=== PATIENT | female | born 1955 | race Two or more races ===

== ENCOUNTER → 2017-11-24 | Outpatient (CLI) | payer OTHER ==
[~2017-11-24] MED LIST: FLEXERIL 10 MG PO; VOLTAREM 50 MG PO; ZYRTEC10 MG PO
== END | disposition home or self-care (01) ==
LOC: PPHC 10:56
DX: J06.9 Acute upper respiratory infection, unspecified (principal)

== ENCOUNTER 2018-04-14 16:33 | Outpatient (CLI) | payer OTHER | END 2018-04-14 16:43 | disposition home or self-care (01) | LOC: RAD 16:33 | DX: M79.621 Pain in right upper arm (principal) ==

== ENCOUNTER 2020-02-12 10:52 | Outpatient (CLI) | payer OTHER | END 2020-02-12 10:59 | disposition home or self-care (01) | LOC: LAB 10:52 | PROVIDERS: ATTEND Internal Medicine | DX: Z20.828 Contact with and (suspected) exposure to other viral communicable diseases (principal); Z20.818 Contact with and (suspected) exposure to other bacterial communicable diseases ==

== ENCOUNTER 2020-03-18 11:17 | Outpatient (CLI) | payer OTHER | END 2020-03-18 15:00 | disposition home or self-care (01) | LOC: LAB 11:17 | PROVIDERS: ATTEND Urology | DX: Z20.828 Contact with and (suspected) exposure to other viral communicable diseases (principal); R05 Cough; R06.02 Shortness of breath; Z03.818 Encounter for observation for suspected exposure to other biological agents ruled out ==

== ENCOUNTER 2020-03-25 14:40 | Outpatient (CLI) | payer OTHER | END 2020-03-25 14:47 | disposition home or self-care (01) | LOC: LAB 14:40 | PROVIDERS: ATTEND Internal Medicine Pulmonary Disease | DX: Z20.828 Contact with and (suspected) exposure to other viral communicable diseases (principal) ==

== ENCOUNTER 2020-04-08 15:41 | Outpatient (CLI) | payer OTHER | END 2020-04-08 15:46 | disposition home or self-care (01) | LOC: LAB 15:41 | DX: Z20.828 Contact with and (suspected) exposure to other viral communicable diseases (principal); J11.1 Influenza due to unidentified influenza virus with other respiratory manifestations; R05 Cough ==

== ENCOUNTER 2020-04-11 08:00 | Outpatient (CLI) | payer OTHER | END 2020-04-11 15:46 | disposition home or self-care (01) | LOC: PPH VACUNA 08:00 | DX: Z23 Encounter for immunization (principal) ==

== ENCOUNTER 2020-06-30 15:07 | Emergency (ER) | payer OTHER ==
[~2020-06-30] VITALS: Ht 172.7 cm; Wt 68.0 kg
== END 2020-06-30 16:50 | disposition home or self-care (01) ==
LOC: ER 15:07
DX: S61.222A Laceration with foreign body of right middle finger without damage to nail, initial encounter (principal); W26.0XXA Contact with knife, initial encounter; Y93.89 Activity, other specified; Y92.098 Other place in other non-institutional residence as the place of occurrence of the external cause; Y99.8 Other external cause status

== ENCOUNTER → 2020-07-05 | Emergency (ER) | payer OTHER ==
[~2020-07-05] MED LIST changes: +KETO10TA2 PO
== END | disposition left against medical advice (07) ==
LOC: ER 11:15
DX: Z53.21 Procedure and treatment not carried out due to patient leaving prior to being seen by health care provider (principal)

== ENCOUNTER 2020-07-08 11:30 | Emergency (ER) | payer OTHER ==
[~2020-07-08] VITALS: Ht 172.7 cm; Wt 70.3 kg
[~2020-07-08 11:30] MED LIST changes: -KETO10TA2 PO
== END 2020-07-08 13:24 | disposition home or self-care (01) ==
LOC: ER 11:30
DX: Z48.02 Encounter for removal of sutures (principal)

== ENCOUNTER 2020-07-15 06:11 | Emergency (ER) | payer OTHER ==
[~2020-07-15] VITALS: Ht 172.7 cm; Wt 70.3 kg
[2020-07-15] MEDS ORDERED: KETO10TA2 PO (07:30)
== END 2020-07-15 07:59 | disposition home or self-care (01) ==
LOC: ER 06:11
DX: R60.0 Localized edema (principal); S61.22 Laceration with foreign body of finger without damage to nail; X58.XXXS Exposure to other specified factors, sequela

== ENCOUNTER 2020-07-15 09:20 | Outpatient (CLI) | payer OTHER ==
[~2020-07-15 09:20] MED LIST changes: +KETO10TA2 PO
== END 2020-07-15 09:26 | disposition home or self-care (01) ==
LOC: LAB 09:20
PROVIDERS: ATTEND Internal Medicine
DX: Z20.828 Contact with and (suspected) exposure to other viral communicable diseases (principal)

== ENCOUNTER → 2020-09-05 10:11 | Outpatient (CLI) | payer OTHER | END | disposition home or self-care (01) | LOC: LAB 10:11 | PROVIDERS: ATTEND Family Medicine | DX: E03.8 Other specified hypothyroidism (principal); N39.0 Urinary tract infection, site not specified; Z12.11 Encounter for screening for malignant neoplasm of colon; E11.9 Type 2 diabetes mellitus without complications; B34.8 Other viral infections of unspecified site; E55.9 Vitamin D deficiency, unspecified; E78.49 Other hyperlipidemia; M06.8A Other specified rheumatoid arthritis, other specified site ==

== ENCOUNTER 2020-09-11 06:23 | Outpatient (CLI) | payer OTHER | END 2020-09-11 06:24 | disposition home or self-care (01) | LOC: LAB 06:23 | PROVIDERS: ATTEND Family Medicine | DX: M10.9 Gout, unspecified (principal); M06.4 Inflammatory polyarthropathy; M33.90 Dermatopolymyositis, unspecified, organ involvement unspecified ==

== ENCOUNTER 2020-10-15 10:27 | Outpatient (CLI) | payer OTHER | END 2020-10-15 10:31 | disposition home or self-care (01) | LOC: MAMO-SONO 10:27 | PROVIDERS: ATTEND Family Medicine | DX: N64.4 Mastodynia (principal); D10.9 Benign neoplasm of pharynx, unspecified ==

== ENCOUNTER 2020-10-15 11:35 | Outpatient (CLI) | payer OTHER | END 2020-10-15 11:44 | disposition home or self-care (01) | LOC: LAB 11:35 | PROVIDERS: ATTEND Family Medicine | DX: Z20.828 Contact with and (suspected) exposure to other viral communicable diseases (principal); N39.0 Urinary tract infection, site not specified ==

== ENCOUNTER → 2021-04-22 | Outpatient (CLI) | payer OTHER | END | disposition home or self-care (01) | LOC: PPH VACUNA 08:00 | PROVIDERS: ATTEND Emergency Medicine Pediatric Emergency Medicine | DX: Z23 Encounter for immunization (principal) ==

== ENCOUNTER 2021-04-29 08:00 | Outpatient (CLI) | payer OTHER | END 2021-04-29 08:30 | disposition home or self-care (01) | LOC: PPH VACUNA 08:00 | PROVIDERS: ATTEND Emergency Medicine Pediatric Emergency Medicine | DX: Z23 Encounter for immunization (principal) ==

== ENCOUNTER 2021-12-27 10:18 | Emergency (ER) | payer OTHER ==
[~2021-12-27] VITALS: Ht 172.7 cm; Wt 73.9 kg
== END 2021-12-27 14:23 | disposition home or self-care (01) ==
LOC: ER 10:18
DX: B34.9 Viral infection, unspecified (principal); J02.9 Acute pharyngitis, unspecified; Z20.822 Contact with and (suspected) exposure to COVID-19

== ENCOUNTER 2022-01-02 14:38 | Outpatient (CLI) | payer OTHER | END 2022-01-02 14:43 | disposition home or self-care (01) | LOC: LAB 14:38 | DX: Z20.822 Contact with and (suspected) exposure to COVID-19 (principal) ==

== ENCOUNTER 2022-03-25 08:00 | Outpatient (CLI) | payer OTHER | END 2022-03-25 08:05 | disposition home or self-care (01) | LOC: PPH VACUNA 08:00 | PROVIDERS: ATTEND Emergency Medicine Pediatric Emergency Medicine | DX: Z23 Encounter for immunization (principal) ==

== ENCOUNTER → 2022-05-14 | Outpatient (CLI) | payer OTHER | END | disposition home or self-care (01) | LOC: MAMO-SONO 14:01 | PROVIDERS: ATTEND Surgery | DX: Z12.31 Encounter for screening mammogram for malignant neoplasm of breast (principal) ==

== ENCOUNTER 2022-06-22 06:34 | Emergency (ER) | payer OTHER ==
[~2022-06-22] VITALS: Ht 172.7 cm; Wt 74.8 kg
== END 2022-06-22 11:55 | disposition home or self-care (01) ==
LOC: ER 06:34
DX: M25.552 Pain in left hip (principal); M54.50 Low back pain, unspecified; M43.8X6 Other specified deforming dorsopathies, lumbar region

== ENCOUNTER 2022-10-14 18:44 | Emergency (ER) | payer OTHER ==
[~2022-10-14] VITALS: Ht 172.7 cm; Wt 72.6 kg
== END 2022-10-14 21:25 | disposition home or self-care (01) ==
LOC: ER 18:44
DX: R10.2 Pelvic and perineal pain (principal)

== ENCOUNTER 2022-10-22 12:34 | Inpatient (IN) | payer OTHER ==
[~2022-10-22] VITALS: Ht 167.6 cm; Wt 70.8 kg
--- NOTE | 2022-10-22 12:42 | NUR ---
PACIENTE FEMENINA ALERTA Y ORIENTADA X3, REFIERE TENER DOLOR ABDOMINAL DEACON Y VOMITOS EL KARELY DE HOY MAS DE 5.
--- NOTE | 2022-10-22 13:05 | NUR ---
PTE ALERTA,ESTABLE Y ORIENTADA.SE EDUCA SOBRE EL TRATAMIENTO QUE RECIBIRA EN EL HOSPITAL Y ESTA REFIERE ENTENDER.SE LE JOCE MUESTRAS DE NATHAN JOY ORDEN MEDICA
[2022-10-27] MEDS ORDERED: PEPCID AC20 MG PO (13:01)
[2022-10-27] MEDS ORDERED: PROTONIX40 MG PO (13:01)
[2022-10-27] MEDS ORDERED: SLOW-MAG64 M1 PO (13:01)
[2022-10-27] MEDS ORDERED: KLOR-CON8 MEQ PO (13:01)
== END 2022-10-27 15:34 | disposition home or self-care (01) | DRG 641 ==
LOC: ER 12:34 → SURG 22:23 → SURH 10-26 11:36 → SURG 10-26 13:13
PROVIDERS: ADMIT Internal Medicine; ATTEND Internal Medicine
PROC: BW40ZZZ Ultrasonography of Abdomen (ICD-10-PCS; principal; 2022-10-22)
PROC: BW21YZZ Computerized Tomography (CT Scan) of Abdomen and Pelvis using Other Contrast (ICD-10-PCS; 2022-10-22)
PROC: CF141ZZ Planar Nuclear Medicine Imaging of Gallbladder using Technetium 99m (Tc-99m) (ICD-10-PCS; 2022-10-23)
PROC: 4A12X4Z Monitoring of Cardiac Electrical Activity, External Approach (ICD-10-PCS; 2022-10-25)
DX: E86.0 Dehydration (principal); N39.0 Urinary tract infection, site not specified; E87.6 Hypokalemia; K29.60 Other gastritis without bleeding; K21.9 Gastro-esophageal reflux disease without esophagitis; E83.42 Hypomagnesemia; I49.9 Cardiac arrhythmia, unspecified; F17.200 Nicotine dependence, unspecified, uncomplicated; Z20.822 Contact with and (suspected) exposure to COVID-19

== ENCOUNTER 2022-11-11 11:00 | Outpatient (CLI) | payer OTHER ==
[~2022-11-11 11:00] MED LIST changes: +KLOR-CON8 MEQ PO; +PEPCID AC20 MG PO; +PROTONIX40 MG PO; +SLOW-MAG64 M1 PO
== END 2022-11-11 11:08 | disposition home or self-care (01) ==
LOC: SONOGRAMA 11:00
DX: R10.2 Pelvic and perineal pain (principal)

== ENCOUNTER → 2023-03-25 | Outpatient (CLI) | payer OTHER | END | disposition home or self-care (01) | LOC: PPH VACUNA | PROVIDERS: ATTEND Emergency Medicine Pediatric Emergency Medicine | DX: Z23 Encounter for immunization (principal) ==

== ENCOUNTER 2023-05-19 09:46 | Outpatient (CLI) | payer OTHER | END 2023-05-19 09:57 | disposition home or self-care (01) | LOC: MAMO-SONO 09:46 | PROVIDERS: ATTEND Surgery | DX: Z12.31 Encounter for screening mammogram for malignant neoplasm of breast (principal); N60.11 Diffuse cystic mastopathy of right breast ==

== ENCOUNTER 2023-05-28 10:08 | Emergency (ER) | payer OTHER ==
[~2023-05-28] VITALS: Ht 172.7 cm; Wt 71.7 kg
[2023-05-28 11:18] LABS: HEMATOCRIT 39.4 % (36.0-45.00); HEMOGLOBIN 13.2 g/dL (12.0-15.00); MEAN CELL VOLUME 93.4 fL (80.00-100.00); MEAN CORPUSCULAR HEMOGLOBIN 31.2 pg (27.00-32.0); MEAN CORPUSCULAR HGB CONC 33.4 g/dl (32.0-36.0); PLATELET COUNT 242 K/uL (150-450); RED BLOOD COUNT 4.22 M/uL (4.00-6.00); RED CELL DISTRIBUTION WIDTH 12.9 % (11.5-14.5)
== END 2023-05-28 12:04 | disposition home or self-care (01) ==
LOC: ER 10:08
PROVIDERS: General Practice
DX: B34.9 Viral infection, unspecified (principal); Z20.822 Contact with and (suspected) exposure to COVID-19

== ENCOUNTER 2023-10-06 13:22 | Outpatient (CLI) | payer OTHER | END 2023-10-06 13:37 | disposition home or self-care (01) | LOC: RAD 13:22 | DX: M25.552 Pain in left hip (principal); M54.2 Cervicalgia; M54.50 Low back pain, unspecified ==

== ENCOUNTER 2023-10-07 12:49 | Outpatient (CLI) | payer OTHER | END 2023-10-07 12:51 | disposition home or self-care (01) | LOC: NUCLEAR 12:49 | PROVIDERS: ATTEND Family Medicine | DX: M81.0 Age-related osteoporosis without current pathological fracture (principal) ==

== ENCOUNTER → 2023-10-13 | Outpatient (CLI) | payer OTHER | END | disposition home or self-care (01) | LOC: TOM 12:01 | PROVIDERS: ATTEND Family Medicine | DX: M54.50 Low back pain, unspecified (principal); M54.2 Cervicalgia; M51.37 Other intervertebral disc degeneration, lumbosacral region ==

== ENCOUNTER 2024-03-26 08:22 | Emergency (ER) | payer OTHER ==
[~2024-03-26] VITALS: Ht 172.7 cm; Wt 69.4 kg
[2024-03-26] MEDS ORDERED: MORPHINE SULFATE 4 MG/ML VIAL IV STA (09:22)
[2024-03-26 10:40] LABS: URINE APPEARANCE Cloudy; URINE BILIRRUBIN Negative (NEGATIVE); URINE BLOOD Negative; URINE COLOR Yellow; URINE GLUCOSE Negative (NEGATIVE); URINE KETONE Negative (NEGATIVE); URINE LEUKOCYTE Negative; URINE NITRATE Negative; URINE PROTEIN Negative (NEGATIVE); URINE UROBILINOGEN 0.2 E.U./dl
[2024-03-26 10:44] LABS: URINE BACTERIA 298.6 uL (0.0-1933); URINE EPITHELIAL CELLS 10.6 uL (0.0-38.8); URINE RBC 3.9 uL (0.0-20.8); URINE WBC 4.6 uL (0.0-23.2)
[2024-03-26 10:47] LABS: HEMATOCRIT 38.5 % (36.0-45.00); MEAN CELL VOLUME 94.2 fL (80.00-100.00); MEAN CORPUSCULAR HEMOGLOBIN 31.8 pg (27.00-32.0); MEAN CORPUSCULAR HGB CONC 33.8 g/dl (32.0-36.0); PLATELET COUNT 270 K/uL (150-450); RED BLOOD COUNT 4.09 M/uL (4.00-6.00); RED CELL DISTRIBUTION WIDTH 13.6 % (11.5-14.5)
[2024-03-26 11:12] LABS: ALBUMIN 3.4 gm/dL (3.4-5.0); ALKALINE PHOSPHATASE 109 U/L (50-136); ALT/SGPT 18 U/L (12-78); ANION GAP 12 (10.0-20.0); AST/SGOT 12 U/L (15-37); BILIRUBIN TOTAL 0.26 mg/dL (0.3-1.2); BILIRUBIN,CONJUGATED < 0.10 mg/dL (0.0-0.2); BILIRUBIN,UNCONJUGATED 0.16 mg/dL (0.0-0.6); BLOOD UREA NITROGEN 16 mg/dL (7-18); BUN CREA RATIO 21 (7.0-25.0); CALCIUM 8.6 mg/dL (8.5-10.1); CARBON DIOXIDE 24 mEq/L (21-32); CHLORIDE 110 mmol/L (98-107); CREATININE SERUM 0.77 mg/dL (0.55-1.02); GFR 74.77; GLUCOSE FASTING 96 mg/dL (65-100); OSMOLALITY SERUM 284 MOSM/KG (275-295); SODIUM 142 mmol/L (136-145); TOTAL PROTEIN 6.7 gm/dL (6.4-8.2)
[2024-03-26] MEDS ORDERED: CIPROFLOXACIN IN 5 % DEXTROSE 400 MG/200 ML PIGGYBAG IV STA (11:32)
[2024-03-26] MEDS ORDERED: METRONIDAZOLE/SODIUM CHLORIDE 500 MG/100 ML PIGGYBACK IV STA (11:32)
[2024-03-26] MEDS ORDERED: CIPROFLOXACIN IN 5 % DEXTROSE 400 MG/200 ML PIGGYBAG IV ONE (11:46)
[2024-03-26] MEDS ORDERED: METRONIDAZOLE/SODIUM CHLORIDE 500 MG/100 ML PIGGYBACK IV ONE (11:46)
== END 2024-03-26 15:00 | disposition home or self-care (01) ==
LOC: ER 08:24
PROVIDERS: General Practice
DX: R10.32 Left lower quadrant pain (principal); K57.32 Diverticulitis of large intestine without perforation or abscess without bleeding; N20.0 Calculus of kidney; K42.9 Umbilical hernia without obstruction or gangrene
CPT/HCPCS: 36415; 74176; 99284; J0744; J2270; J3490

== ENCOUNTER 2024-04-27 10:30 | Outpatient (CLI) | payer OTHER | END 2024-04-27 11:00 | disposition home or self-care (01) | LOC: PPH VACUNA 10:30 | PROVIDERS: ATTEND Emergency Medicine Pediatric Emergency Medicine | DX: Z23 Encounter for immunization (principal) ==

== ENCOUNTER 2024-05-03 08:06 | Outpatient (CLI) | payer OTHER | END 2024-05-03 08:07 | disposition home or self-care (01) | LOC: NUCLEAR 08:06 | PROVIDERS: ATTEND Internal Medicine Rheumatology | DX: M05.79 Rheumatoid arthritis with rheumatoid factor of multiple sites without organ or systems involvement (principal) | CPT/HCPCS: 78306; A9503 ==

== ENCOUNTER → 2025-01-07 | Emergency (ER) | payer OTHER ==
[~2025-01-07] VITALS: Ht 172.7 cm; Wt 68.9 kg
[~2025-01-07] MED LIST changes: +CIPRO500 MG PO; +LEVSIN/SL0.125 MG SL; +METRONIDAZOLE500 MG PO; +PROBIOTIC1 EAC2 PO; +ZOFRAN8 MG PO
== END | disposition left against medical advice (07) ==
LOC: ER 19:19
DX: Z53.21 Procedure and treatment not carried out due to patient leaving prior to being seen by health care provider (principal)

== ENCOUNTER 2025-01-08 11:41 | Emergency (ER) | payer OTHER ==
[~2025-01-08] VITALS: Ht 172.7 cm; Wt 68.9 kg
[~2025-01-08 11:41] MED LIST changes: -CIPRO500 MG PO; -LEVSIN/SL0.125 MG SL; -METRONIDAZOLE500 MG PO; -PROBIOTIC1 EAC2 PO; -ZOFRAN8 MG PO
[2025-01-08] MEDS ORDERED: 0.9 % SODIUM CHLORIDE 1,000 ML IV STA (11:54)
[2025-01-08] MEDS ORDERED: ONDANSETRON HCL 2 MG/ML VIAL IV STA (11:54)
[2025-01-08] MEDS ORDERED: FAMOTIDINE/PF 20 MG in 0.9 % SODIUM CHLORIDE 8 ML IV PUSH STA (11:54)
[2025-01-08] MEDS ORDERED: FAMOTIDINE/PF 20 MG/2 ML VIAL ONE (11:58)
[2025-01-08] MEDS ORDERED: ONDANSETRON HCL 2 MG/ML VIAL ONE (11:58)
[2025-01-08] MEDS ORDERED: MORPHINE SULFATE 4 MG/ML VIAL IV ONE (12:00)
[2025-01-08 13:28] LABS: CALCIUM 8.8 mg/dL (8.5-10.1); CREATININE SERUM 0.7 mg/dL (0.55-1.02); GFR 83.21; POTASSIUM 3.23 mEq/L (3.5-5.1)
[2025-01-08 14:15] LABS: BASO % 0.2 % (0.1-1.2); HEMATOCRIT 37.6 % (34.1-44.9); LYMPH % 19.8 % (19.3-53.1); MEAN CORPUSCULAR HEMOGLOBIN 31.4 pg (25.6-32.2); NEUT % 74.9 % (34.0-71.1); PLATELET COUNT 289 K/uL (163-369); RED BLOOD COUNT 4.14 M/uL (3.93-5.22)
[2025-01-08 14:31] LABS: LYMPH # 1.91 (1.18-3.74); MONO # 0.48 (0.24-0.82); NEUT # 7.24 (1.56-6.13)
[2025-01-08] MEDS ORDERED: KETOROLAC TROMETHAMINE 30 MG VIAL IV ONE (17:30)
[2025-01-08] MEDS ORDERED: HYOSCYAMINE SULFATE 0.125 MG TAB.SUBL SL ONE (17:30)
[2025-01-08] MEDS ORDERED: PROMETHAZINE HCL 50 MG/ML AMPUL IM ONE ×2 (17:30→17:31)
[2025-01-08] MEDS ORDERED: HYOSCYAMINE SULFATE 0.125 MG TAB.SUBL ONE (17:31)
[2025-01-08] MEDS ORDERED: KETOROLAC TROMETHAMINE 30 MG VIAL ONE (17:31)
[2025-01-08] MEDS ORDERED: CIPRO500 MG PO (23:22)
[2025-01-08] MEDS ORDERED: PROBIOTIC1 EAC2 PO (23:22)
[2025-01-08] MEDS ORDERED: METRONIDAZOLE500 MG PO (23:22)
[2025-01-08] MEDS ORDERED: ZOFRAN8 MG PO (23:22)
[2025-01-08] MEDS ORDERED: LEVSIN/SL0.125 MG SL (23:22)
[2025-01-08] MEDS ORDERED: PEPCID AC20 MG PO (23:22)
== END 2025-01-09 00:03 | disposition home or self-care (01) ==
LOC: ER 11:41
PROVIDERS: Emergency Medicine
DX: K57.90 Diverticulosis of intestine, part unspecified, without perforation or abscess without bleeding (principal); R10.9 Unspecified abdominal pain
CPT/HCPCS: 36415; 74177; 76700; Q9965

== ENCOUNTER 2025-01-12 09:37 | Emergency (ER) | payer OTHER ==
[~2025-01-12] VITALS: Ht 172.7 cm; Wt 65.3 kg
[~2025-01-12 09:37] MED LIST changes: +CIPRO500 MG PO; +LEVSIN/SL0.125 MG SL; +METRONIDAZOLE500 MG PO; +PROBIOTIC1 EAC2 PO; +ZOFRAN8 MG PO
[2025-01-12] MEDS ORDERED: MECLIZINE HCL 25 MG TABLET PO ONE ×2 (09:57→10:00)
[2025-01-12 10:59] LABS: BASO % 0.3 % (0.1-1.2); EOS # 0.03 (0.04-0.54); EOS % 0.3 % (0.7-7.0); HEMATOCRIT 43.7 % (34.1-44.9); HEMOGLOBIN 15.3 g/dL (11.2-15.7); LYMPH # 2.84 (1.18-3.74); LYMPH % 24.1 % (19.3-53.1); MEAN CORPUSCULAR HEMOGLOBIN 31.6 pg (25.6-32.2); MONO % 11.9 % (4.7-12.5); NEUT # 7.44 (1.56-6.13); NEUT % 63.1 % (34.0-71.1); PLATELET COUNT 289 K/uL (163-369); RED BLOOD COUNT 4.84 M/uL (3.93-5.22)
[2025-01-12 11:28] LABS: URINE APPEARANCE Turbid; URINE BILIRRUBIN Small (NEGATIVE); URINE BLOOD Negative; URINE COLOR Dark Yellow; URINE GLUCOSE Negative (NEGATIVE); URINE KETONE 15 (NEGATIVE); URINE LEUKOCYTE Moderate; URINE NITRATE Positive
[2025-01-12 11:31] LABS: CALCIUM 9.2 mg/dL (8.5-10.1); CREATININE SERUM 1.04 mg/dL (0.55-1.02); GFR 52.7
[2025-01-12 11:34] LABS: URINE CAST 10.31 uL (0.0-1.40); URINE RBC 23.4 uL (0.0-20.8); URINE WBC 197.2 uL (0.0-23.2)
[2025-01-12 11:46] LABS: TYPE CELLS SQUAMOUS; URINE BACTERIA > 9821.5 uL (0.0-1933); URINE PROTEIN 100 (NEGATIVE)
[2025-01-12 11:54] LABS: POTASSIUM 2.89 mEq/L (3.5-5.1)
[2025-01-12] MEDS ORDERED: POTASSIUM CHLORIDE 10 MEQ CAPSULE PO ONE (12:15)
[2025-01-12] MEDS ORDERED: KETOROLAC TROMETHAMINE 30 MG VIAL ONE (12:35)
[2025-01-12] MEDS ORDERED: KETOROLAC TROMETHAMINE 30 MG VIAL IV ONE (12:45)
[2025-01-12] MEDS ORDERED: ONDANSETRON HCL 2 MG/ML VIAL ONE (13:43)
[2025-01-12] MEDS ORDERED: FAMOTIDINE/PF 20 MG in 0.9 % SODIUM CHLORIDE 8 ML IV PUSH STA (13:45)
[2025-01-12] MEDS ORDERED: ONDANSETRON HCL 2 MG/ML VIAL IV STA (13:45)
[2025-01-12] MEDS ORDERED: POTASSIUM CHLORIDE 10 MEQ CAPSULE PO STA (16:23)
[2025-01-12 17:01] LABS: CALCIUM 9.5 mg/dL (8.5-10.1); CREATININE SERUM 0.96 mg/dL (0.55-1.02); GFR 57.8; POTASSIUM 3.68 mEq/L (3.5-5.1)
== END 2025-01-12 17:45 | disposition home or self-care (01) ==
LOC: ER 09:37
PROVIDERS: Emergency Medicine
DX: R42 Dizziness and giddiness (principal); N39.0 Urinary tract infection, site not specified

== ENCOUNTER 2025-04-09 07:57 | Outpatient (CLI) | payer OTHER | END 2025-04-09 08:03 | disposition home or self-care (01) | LOC: MAMO-SONO 07:57 | PROVIDERS: ATTEND Family Medicine | DX: N64.4 Mastodynia (principal); Z12.31 Encounter for screening mammogram for malignant neoplasm of breast ==

== ENCOUNTER 2025-05-10 10:00 | Outpatient (CLI) | payer OTHER | END 2025-05-10 10:10 | disposition home or self-care (01) | LOC: PPH VACUNA 10:00 | PROVIDERS: ATTEND Emergency Medicine Pediatric Emergency Medicine | DX: Z23 Encounter for immunization (principal) ==

== ENCOUNTER 2025-05-21 09:49 | Outpatient (CLI) | payer OTHER | END 2025-05-21 09:55 | disposition home or self-care (01) | LOC: RAD 09:49 | DX: M25.561 Pain in right knee (principal); M99.01 Segmental and somatic dysfunction of cervical region; M99.03 Segmental and somatic dysfunction of lumbar region; M99.05 Segmental and somatic dysfunction of pelvic region ==

== ENCOUNTER 2025-06-26 10:00 | Outpatient (CLI) | payer OTHER | END 2025-06-26 10:01 | disposition home or self-care (01) | LOC: MAMO-SONO 10:00 | DX: R92.2 Inconclusive mammogram (principal) ==